=== PATIENT | male | born 2005 | race Caucasian/White ===

== ENCOUNTER 2024-07-07 10:32 | Emergency (ER) | payer SELFPAY ==
[2024-07-07 10:43] VITALS: BP 157/86; PULSE 113; RESP 18; TEMP 36.1; O2SAT 97
[2024-07-07 11:50] VITALS: RESP 15
--- NOTE | 2024-07-07 11:50 | W.ED.DENTAL ---
HPI - Dental/Oral General: Chief complaint: Dental/Oral Stated complaint: toothache Time Seen by Provider: 07/07/24 11:42 History of Present Illness: 19-year-old male presents emergency room with complaint of dental pain. Referring to an incisor in the mandible left of the midline. States been painful for the last couple of days. No drainage no fever sweats or chills. Yes states he has a little bit of an ingrown toenail on his left foot. Patient reports he took hydrocodone 10/325 at home and still has discomfort Related Data Home Medications Medication Instructions Recorded Confirmed benzocaine 10 % mucosal gel 1 applic mucous membrane QID PRN 07/07/24 07/07/24 Pain ibuprofen 200 mg tablet (Advil) 800 mg PO Q6H PRN Pain 07/07/24 07/07/24 Previous Rx's Medication Instructions Recorded amoxicillin 500 mg-potassium 1 tab PO TID #30 tabs 07/07/24 clavulanate 125 mg tablet (Augmentin) diclofenac sodium 75 mg 75 mg PO Q12H PRN pain #20 tabs 07/07/24 tablet,delayed release Physical Exam HENMT: OTHER: Examination of the mouth mentation is actually very good there is no sign of swelling or significant erosion no gumline swelling abscess abnormality no drainage. Tender to the area he refers to the of the lower left incisors. Course Vital Signs: Vital signs: Vital Signs Temperature 97 F L 07/07/24 10:43 Pulse Rate 113 H 07/07/24 10:43 Respiratory Rate 15 07/07/24 11:50 Blood Pressure 157/86 07/07/24 10:43 Pulse Oximetry 97 07/07/24 10:43 MDM - Dental/Oral Medical Decision Making Patient reports pain there is no overt signs of infection at this time. Will start on antibiotics encouraged him to follow-up with dentist as soon as he is able can use diclofenac as needed. As to his ingrown toenail will refer to podiatry. No radiology studies performed this visit Discharge Plan Discharge Patient Disposition: Home Clinical Impression: Toothache, Ingrowing toenail of left foot Condition: Stable Prescriptions: New diclofenac sodium 75 mg tablet,delayed release (DR/EC) 75 mg PO Q12H PRN (Reason: pain) Qty: 20 0RF amoxicillin-pot clavulanate [Augmentin] 500-125 mg tablet 1 tab PO TID Qty: 30 0RF No Action Orajel 10 % Gel 1 applic MUCOUS MEMBRANE QID PRN (Reason: Pain) ibuprofen [Advil] 200 mg Tablet 800 mg PO Q6H PRN (Reason: Pain) Discharge Orders: Discharge ED (Routine); Ordered 07/07/24 Ordered By: Don Escamilla Discharge Diet: Soft Mechanical Discharge Activity: Increase activity as tolerated Patient Instructions: Opioid Safety, Pain Management Activity Restrictions/Additional Instructions: Thank you for choosing [facility] for your healthcare needs today. It is very important that you follow up as instructed or that you return to the Emergency Department should you have concerns or if your condition changes or worsens in any way. infection control manager will make arrangements for you to follow-up with podiatry. Follow-up with a dentist regarding your tooth as soon as you are able. Coding Level of Care Code ED Change Of Address Clerk for Sheryl Taylor
--- NOTE | 2024-07-07 11:50 | PC.PHAR ---
patient states he took someones hydrocodone 2 tabs 10-325 and ibprofen before coming in to the E>R>
== END 2024-07-07 11:54 | disposition home or self-care (01) ==
PROVIDERS: Emergency Provider Family Medicine
DX: K08.89 Other specified disorders of teeth and supporting structures (principal); L60.0 Ingrowing nail
CPT/HCPCS: 99283